=== PATIENT | male | born 1975 | race Caucasian/White ===

== ENCOUNTER 2017-07-31 12:08 | Emergency (ER) | payer SELFPAY ==
--- NOTE | 2017-07-31 12:48 | RAD ---
2 views of the Chest 07/31/2017 2:28 PM Indication: cough Comparison: None Findings: There is no focal consolidation or infiltrate identified. There is no effusion or pneumothorax. The cardiomediastinal silhouette and pulmonary vasculature are within normal limits. No osseous abnormality is identified. Impression: No evidence of acute cardiopulmonary process.
[2017-07-31] MEDS ORDERED: IBUP600T16 PO (13:37)
--- NOTE | 2017-07-31 13:38 | PHYS DOC ---
Past History Past Medical History: Bipolar Past Surgical History: Other Alcohol Use: Occasionally Drug Use: None Adult General Chief Complaint Chief Complaint: COUGH HPI HPI Patient is a 41-year-old gentleman who presents here today complaining of green productive cough times approximately one week. Patient reports myalgias, arthralgias, sore throat, nausea. Patient denies any dysuria frequency urgency. Patient has any abdominal pain. Patient denies any ear pain. Patient reports she does know history significant for hypertension diabetes lung liver or kidney problems. Patient does smoke cigarettes occasional alcohol no drugs. Patient has no known drug allergies. Review of Systems Review of Systems Review of systems: Constitutional: Tactile fevers. Eyes: Denies change in visual acuity, redness, or eye pain HENT: Positive for nasal congestion or sore throat Respiratory: Positive for cough All other systems were reviewed and found to be within normal limits, except as documented in this note. Physical exam: Constitutional: Well developed, well nourished, no acute distress, non-toxic appearance. HENT: Normocephalic, atraumatic, bilateral external ears normal, nose normal. Eyes: PERRLA, EOMI, conjunctiva normal, no discharge. Neck: Normal range of motion, no tenderness, supple, no stridor. Cardiovascular: Heart rate regular rhythm, Lungs & Thorax: Bilateral breath sounds clear to auscultation Abdomen: No abdominal distention. Skin: Warm, dry, no erythema, no rash. Back: Normal spinal curvature Extremities: No tenderness, no cyanosis, no clubbing, ROM intact, no edema. Neurologic: Alert and oriented X 3, normal motor function, normal sensory function, no focal deficits noted. Psychologic: Affect normal, judgement normal, mood normal. Patient's ER physical exam was most remarkable: Oropharynx clear, TMs clear, lungs clear without any wheezing rales or rhonchi. Chest x-ray as interpreted by ER physician reveals: No infiltrates or effusions. Normal heart as interpreted by ER physician Assessment and plan: 1. Viral illness: 41-year-old gentleman who presents here today with sinus symptoms consistent with a viral URI. Patient's symptoms being greater than 24 hours or for Tamiflu would not be a consideration. Patient does not have associated dysuria. Patient's clinically dynamically stable the pulse ox of 95% on room air. Patient be discharged home in stable condition and will be instructed to utilize ibuprofen, [id number] Robitussin, rest, fluids Allergies Allergies Allergies Coded Allergies Type Severity Reaction Last Updated Verified No Known Drug Allergies 07/31/17 No Current Patient Data Vital Signs Vital Signs Date Time Temp Pulse Resp B/P (MAP) Pulse Ox O2 Delivery O2 Flow Rate FiO2 07/31/17 12:08 98.3 100 18 97 Room Air EKG EKG [] Radiology/Procedures Radiology/Procedures [] Course & Med Decision Making Course & Med Decision Making Pertinent Labs and Imaging studies reviewed. (See chart for details) [] Dragon Disclaimer Dragon Disclaimer This electronic medical record was generated, in whole or in part, using a voice recognition dictation system. Departure Departure: Impression: Primary Impression: Viral illness Disposition: 01 HOME, SELF-CARE Condition: IMPROVED Patient Instructions: Viral Syndrome Scripts Ibuprofen (IBUPROFEN) 600 Mg Tablet 600 MG PO QID Y for PAIN, #20 Prov: JETT CHIANG MD 07/31/17 JETT CIHANG MD Jul 31, 2017 13:38
[2017-07-31 13:45] VITALS: BP 123/74
== END 2017-07-31 13:45 | disposition home or self-care (01) ==
LOC: ER 12:08
DX: B34.9 Viral infection, unspecified (principal); E11.9 Type 2 diabetes mellitus without complications; I10 Essential (primary) hypertension; F17.210 Nicotine dependence, cigarettes, uncomplicated
CPT/HCPCS: 71046; 99284